=== PATIENT | female | born 1955 | race Caucasian/White ===

== ENCOUNTER 2016-07-11 08:39 | Day surgery (SDC) | payer OTHER ==
[2016-07-04 08:58] LABS: BASOPHILS 0.4 %; BASOPHILS ABSOLUTE 0.03 10/3/uL (0.0-0.16); EOSINOPHILS 2.9 %; EOSINOPHILS ABSOLUTE 0.22 10/3/uL (0.0-0.53); HEMATOCRIT 41.1 % (36.0-48.0); HEMOGLOBIN 13.7 g/dL (12.0-16.0); IMMATURE GRANULOCYTES 0.4 %; IMMATURE GRANULOCYTES ABSOLUTE 0.03 10/3/uL (0.0-0.11); LYMPHOCYTES 31.1 %; LYMPHOCYTES ABSOLUTE 2.33 10/3/uL (0.67-4.30); MEAN CORPUS HGB CONC 33.3 g/dL (32.0-36.0); MEAN PLATELET VOLUME 12.4 fL (9.2-13.0); MONOCYTES 7.5 %; MONOCYTES ABSOLUTE 0.56 10/3/uL (0.21-1.20); NEUTROPHILS 57.7 %; NEUTROPHILS ABSOLUTE 4.32 10/3/uL (2.02-8.40); PLATELET COUNT 196 10/3/uL (150-400); RBC DISTRIBUTION WIDTH 12.5 % (12.0-16.0); RED CELL COUNT 4.42 10/6/uL (4.0-5.6); WHITE BLOOD CELLS 7.5 10/3/uL (4.5-10.5)
[2016-07-04 09:02] LABS: MANUAL DIFF NO %
[2016-07-04 09:10] LABS: ALBUMIN 3.5 G/DL (3.5-5.0); ALKALINE PHOSPHATASE 78 U/L (45-117); BUN (BLOOD UREA NITROGEN) 10 MG/DL (6-23); CALCIUM, SERUM 8.3 MG/DL (8.5-10.4); CHLORIDE, SERUM 105 MMOL/L (96-112); CO2 (CARBON DIOXIDE) 27 MMOL/L (24-34); CREATININE 0.77 MG/DL (0.55-1.02); DIRECT BILIRUBIN 0.2 MG/DL (0.0-0.4); GFR AFRICAN AMERICAN 98 ML/MIN (>=60); GFR NON AFRICAN AMERICAN 85 ML/MIN (>=60); INDIRECT BILIRUBIN(NOT ORDER) 0.8 MG/DL (0.1-0.9); POTASSIUM, SERUM 4.3 MMOL/L (3.5-5.3); SGOT(AST) 24 U/L (5-40); SGPT(ALT) 36 U/L (5-65); SODIUM, SERUM 142 MMOL/L (135-148); TOTAL PROTEIN 6.6 G/DL (6.0-8.5)
[2016-07-04 09:11] LABS: GLUCOSE, SERUM 128 MG/DL (60-99)
--- NOTE | ~2016-07-11 | OP ---
Record Of Operation [facility] [address] [place]. [address] NAME: GALE JOHNSON : 59 STATUS : [place] [facility] [place] PAT#: [id number] AGE: 61 ADM/REG DATE : 07/11/16 MR#: [id number] REPORT SERV DATE: 07/11/16 DICTATED BY: CRSITHIAN BIRMINGHAM DATE: 07/11/16 REPORT STATUS : Draft TRANSCRIBED BY: MODL DATE: 07/11/16 DATE OF PROCEDURE: 07/11/2016 SERVICE: Otolaryngology. PREOPERATIVE DIAGNOSES: 1. Chronic left maxillary sinusitis. 2. Chronic left ethmoid sinusitis. 3. Chronic left frontal sinusitis. POSTOPERATIVE DIAGNOSES: 1. Chronic left maxillary sinusitis. 2. Chronic left ethmoid sinusitis. 3. Chronic left frontal sinusitis. PROCEDURES: 1. Endoscopic frontal sinusotomy. 2. Endoscopic anterior ethmoidectomy. 3. Endoscopic maxillary antrostomy. These were all performed on the left side. SURGEON: Cristhian Birmingham MD ANESTHESIA: General endotracheal anesthesia. ESTIMATED BLOOD LOSS: 5 mL. COMPLICATIONS: None. SPECIMENS: Left nasal contents. FINDINGS: The patient had polypoid mucosa, evidence of chronic sinusitis throughout. STATEMENT OF MEDICAL NECESSITY: This is a 61-year-old female who had been treated maximally with medications for chronic sinusitis, it did not resolve. CT evidence of complete opacification of the left maxillary and left anterior ethmoid sinuses as well as near complete opacification of the left frontal sinus. STATEMENT OF OPERATION: The patient was brought to the operating room in supine position, transferred over to the operating room table. All pressure points were padded and general endotracheal anesthesia was established. The nasal vibrissae were trimmed with scissors on the left hand side, and the nose was packed with two pledgets soaked in 4% topical cocaine. The patient was then prepped and draped out for sinus surgery. The cocaine pledgets were removed. Using a 0-degree endoscope, the middle turbinate was gently medialized. 1% lidocaine with epinephrine was then injected into the head of the middle turbinate, the root of the middle turbinate, and the lateral nasal wall on the left side. Then, using the hooked end of a frontal sinus probe, the uncinate process was gently anteriorized and the Record Of Operation [facility] [address] [place]. [address] NAME: GALE JOHNSON : 59 STATUS : [place] [facility] [place] PAT#: [id number] AGE: 61 ADM/REG DATE : 07/11/16 MR#: [id number] REPORT SERV DATE: 07/11/16 DICTATED BY: CRISTHIAN BIRMINGHAM DATE: 07/11/16 REPORT STATUS : Draft TRANSCRIBED BY: MODL DATE: 07/11/16 natural os of the maxillary sinus was widely opened using pediatric backbiting forceps and microdebrider. The uncinate process was removed in its entirety using the microdebrider. Next, the clearing frontal sinus balloon was advanced into the frontal sinus. On the CT scan, the patient was noted to have a prominent type 3 frontal cell. The wire did provide good transillumination with focal point of light. Three separate inflations of 12 atmospheres for 3 seconds were performed along the frontal sinus outflow tract. Using a 45- degree scope, the new frontal sinusotomy was well seen. Next, using the maxillary probe, I palpated behind the along the attachment of the middle turbinate and I brought the ethmoid sinuses forward. These were removed with Blakesley forceps and thru-cutting upbiting forceps along with the microdebrider. I was able to see the lamina papyracea and skull base clearly and felt I removed all the diseased adenoids cells and at the conclusion of the case, I applied Stammberger Sinu-Foam to the ethmoid and maxillary cavity. This concluded the case. The patient was turned back over to Anesthesia, where she awoke, was extubated, and transferred to the PACU in stable condition. PS/MODL Cristhian Birmingham MD / [id number] CC: MD Gayle Siddiqi Crystal
[~2016-07-11 08:39] MED LIST: ALEVE220 MG PO; ATEN100 PO; BENTYL10 PO; CELEXA10 PO; ESTRACE1 MG PO; GLUCPH PO; NEXIUM20 M1 PO; X25 PO; [UNRECOGNIZED DRUG - CODE] PO
== END 2016-07-11 23:59 | disposition home or self-care (01) ==
LOC: MSC 08:39
PROVIDERS: Otolaryngology
PROC: 09DV4ZZ Extraction of Left Ethmoid Sinus, Percutaneous Endoscopic Approach (ICD-10-PCS; 2016-07-11)
PROC: 099R4ZZ Drainage of Left Maxillary Sinus, Percutaneous Endoscopic Approach (ICD-10-PCS; 2016-07-11)
PROC: 09QT4ZZ Repair Left Frontal Sinus, Percutaneous Endoscopic Approach (ICD-10-PCS; principal; 2016-07-11 10:15)
DX: J32.0 Chronic maxillary sinusitis (principal); J32.2 Chronic ethmoidal sinusitis; J32.1 Chronic frontal sinusitis
CPT/HCPCS: 80048; 80076; 82962; 85025; 88305; 93005; A9270-GY; C1726; J0330; J2250; J2405; J3010